=== PATIENT | female | born 1995 | race Caucasian/White ===

== ENCOUNTER → 2021-06-15 | Outpatient (CLI) | payer OTHER | LOC: M WUC 10:32 | PROVIDERS: ATTEND Physician Assistant | DX: S83.412A Sprain of medial collateral ligament of left knee, initial encounter (principal); W18.30XA Fall on same level, unspecified, initial encounter; Y92.009 Unspecified place in unspecified non-institutional (private) residence as the place of occurrence of the external cause ==

== ENCOUNTER → 2021-07-15 | Outpatient (REF) | payer OTHER | LOC: M WUC 11:18 | PROVIDERS: ATTEND Physician Assistant | DX: J06.9 Acute upper respiratory infection, unspecified (principal) ==

== ENCOUNTER → 2023-10-19 | Outpatient (CLI) | payer OTHER | LOC: M EKG 11:23 | PROVIDERS: ATTEND Obstetrics & Gynecology | DX: O16.9 Unspecified maternal hypertension, unspecified trimester (principal) ==

== ENCOUNTER → 2023-12-20 | Outpatient (CLI) | payer OTHER ==
[2023-12-20 16:03] LABS: HEMATOCRIT 36.4 % (36.0-47.0); HEMOGLOBIN 12.3 g/dl (12.0-15.5); MEAN CORPUSCULAR HGB CONC 33.8 g/dl (32.0-36.5); MEAN CORPUSCULAR VOLUME 91.7 fl (80.0-96.0); PLATELET COUNT, AUTOMATED 187 10^3/uL (150-450); RED BLOOD COUNT 3.97 10^6/uL (4.00-5.40); WHITE BLOOD COUNT 15.2 10^3/uL (4.0-10.0)
[2023-12-20 16:47] LABS: HIV 1&2 SCREEN NEGATIVE (NEGATIVE)
[2023-12-20 16:54] LABS: HEPATITIS C VIRUS ABY INDEX 0.04 INDEX (<0.8)
== END ==
LOC: M PLALAB 11:52
PROVIDERS: ATTEND Specialist
DX: Z34.02 Encounter for supervision of normal first pregnancy, second trimester (principal)

== ENCOUNTER → 2024-01-01 | Outpatient (CLI) | payer OTHER | LOC: M RAD 11:54 | PROVIDERS: ATTEND Obstetrics & Gynecology | DX: O16.9 Unspecified maternal hypertension, unspecified trimester (principal) ==

== ENCOUNTER → 2024-01-17 | Outpatient (REF) | payer OTHER ==
[2024-01-17 20:54] LABS: GC DNA AMPLIFICATION NEGATIVE (NEGATIVE)
== END ==
LOC: M SFHCWAGY 17:17
PROVIDERS: ATTEND Specialist
DX: Z34.02 Encounter for supervision of normal first pregnancy, second trimester (principal)

== ENCOUNTER → 2024-02-06 | Outpatient (CLI) | payer OTHER ==
[~2024-02-06] MED LIST: COLA100C5 PO; ECOT81TA5 PO; GNPTAB36 PO; LABE200T5 PO; PRENTAB53 PO
== END ==
LOC: M RAD 14:18
PROVIDERS: ATTEND Obstetrics & Gynecology
DX: O24.410 Gestational diabetes mellitus in pregnancy, diet controlled (principal)

== ENCOUNTER 2024-02-14 06:16 | Inpatient (IN) | payer OTHER ==
[2024-02-14] VITALS (7 sets, daily range): BP systolic 121–138; BP diastolic 65–78; O2SAT 96–99
[~2024-02-14] VITALS: Ht 162.6 cm; Wt 137.8 kg
[2024-02-14] MEDS ORDERED: LACTATED RINGER'S 1000 ML IV STA (07:34)
[2024-02-14] MEDS ORDERED: ceFAZolin SOD 3 GM IV Place Holder IV ONE (07:35)
[2024-02-14] MEDS ORDERED: BICITRA 30ML SOLN UDC PO ONE (07:35)
[2024-02-14] MEDS ORDERED: HOME MED LIST COMPLETE! XX SCH (07:45)
[2024-02-14] MEDS: LR 1,000 ML IV SCH ×2 (08:26→12:41)
[2024-02-14] MEDS: LACTATED RINGER'S 1000 ML IV STA (08:26)
[2024-02-14 08:36] LABS: HEMATOCRIT 35.8 % (36.0-47.0); HEMOGLOBIN 12.4 g/dl (12.0-15.5); MEAN CORPUSCULAR HEMOGLOBIN 31.4 pg (27.0-33.0); MEAN CORPUSCULAR HGB CONC 34.6 g/dl (32.0-36.5); MEAN CORPUSCULAR VOLUME 90.6 fl (80.0-96.0); PLATELET COUNT, AUTOMATED 163 10^3/uL (150-450); RED BLOOD COUNT 3.95 10^6/uL (4.00-5.40); WHITE BLOOD COUNT 14.2 10^3/uL (4.0-10.0)
[2024-02-14] MEDS ORDERED: CETIRIZINE (ZyrTEC) 10 MG TAB PO SCH (09:00)
[2024-02-14] MEDS: PRENATAL VITAMINS CHEWABLE TABLET PO SCH (09:00)
[2024-02-14] MEDS: BICITRA 30ML SOLN UDC PO ONE (09:25)
[2024-02-14] MEDS: ceFAZolin SOD 2 GM in IV 1 EA IV ONE (09:26)
[2024-02-14] MEDS: ceFAZolin SOD 1 GM in D5W MINI-BAG PLUS 50 ML IV ONE (09:26)
[2024-02-14 09:41] LABS: HEPATITIS C VIRUS ABY INDEX < 0.02 INDEX (<0.8)
[2024-02-14] MEDS ORDERED: MORPHINE PRES-FREE INJ 10 MG/10 ML VIAL As Ordered ONE (10:21)
[2024-02-14] MEDS ORDERED: ACETAMINOPHEN 1000MG 100ML IV BAG As Ordered ONE (10:22)
[2024-02-14] MEDS ORDERED: ONDANSETRON 4MG 2ML VIAL As Ordered ONE (10:22)
[2024-02-14] MEDS ORDERED: OXYTOCIN 30UNITS IN 0.9% NaCl 500ML IV BAG As Ordered ONE (10:22)
[2024-02-14] MEDS ORDERED: KETOROLAC 60MG 2ML VIAL As Ordered ONE (10:22)
[2024-02-14] MEDS ORDERED: ePHEDrine SULFATE 25 MG/5 ML(5MG/ML) SYRINGE As Ordered ONE (10:42)
[2024-02-14] MEDS ORDERED: PHENYLephrine 500MCG 5ML (100MCG/ML) SYRINGE As Ordered ONE (11:17)
[2024-02-14] MEDS ORDERED: diphenhydrAMINE 50MG/ML VIAL As Ordered ONE (12:03)
[2024-02-14] MEDS ORDERED: DOCUSATE SODIUM 100MG CAPSULE PO PRN (12:10)
[2024-02-14] MEDS ORDERED: SIMETHICONE 80MG CHEW TAB PO PRN (12:10)
[2024-02-14] MEDS ORDERED: RHO(D) IMMUNE GLOBULIN/MALTOSE 500MCG(2500IU)/2.2ML VIAL (WINRHO) IM SCH (12:10)
[2024-02-14] MEDS ORDERED: oxyCODONE 5MG TAB PO PRN ×3 (12:10→12:15)
[2024-02-14] MEDS ORDERED: NALOXONE INJ 0.4MG/1ML VIAL IV PRN ×2 (12:15)
[2024-02-14] MEDS: SLF 3 ML SYR IV SCH (12:15)
[2024-02-14] MEDS ORDERED: METOCLOPRAMIDE INJ 10MG/2ML VIAL IV PRN (12:15)
[2024-02-14] MEDS ORDERED: ONDANSETRON 4MG 2ML VIAL IV PRN (12:15)
[2024-02-14] MEDS ORDERED: **NOTE PATIENT COMMENT** MISC XX SCH (12:15)
[2024-02-14] MEDS ORDERED: fentaNYL 100 MCG/2 ML INJECTION IV PRN (12:15)
[2024-02-14] MEDS ORDERED: IBUP-1022 PO (12:38)
[2024-02-14] MEDS ORDERED: ACET-683 PO (12:38)
[2024-02-14] MEDS ORDERED: COLA100C5 PO (12:38)
[2024-02-14] MEDS ORDERED: OXYC-517 PO (12:38)
[2024-02-14] MEDS: OXYTOCIN DRIP 30 UNITS in IV 1 EA IV SCH (12:40)
[2024-02-14] MEDS: METOCLOPRAMIDE INJ 10MG/2ML VIAL IV PRN (15:16)
[2024-02-14] MEDS: KETOROLAC 30 MG/ML 1ML VIAL IV SCH (17:46)
[2024-02-14] MEDS: diphenhydrAMINE 50MG/ML VIAL IV PRN (17:46)
[2024-02-14] MEDS: ACETAMINOPHEN 500 MG TAB PO SCH (17:47)
[2024-02-14] MEDS: ONDANSETRON 4MG 2ML VIAL IV PRN (20:21)
[2024-02-14] MEDS: CETIRIZINE (ZyrTEC) 10 MG TAB PO SCH (20:22)
[2024-02-14] MEDS: LABETALOL 200 MG TAB PO SCH (20:22)
[2024-02-14] MEDS: LR 1,000 ML IV ONE (20:23)
[2024-02-15] VITALS (9 sets, daily range): BP systolic 109–132; BP diastolic 53–61; TEMP 98.7; O2SAT 95–98
[2024-02-15 06:23] LABS: HEMATOCRIT 30.1 % (36.0-47.0); MEAN CORPUSCULAR HEMOGLOBIN 31.2 pg (27.0-33.0); MEAN CORPUSCULAR HGB CONC 33.6 g/dl (32.0-36.5); MEAN CORPUSCULAR VOLUME 92.9 fl (80.0-96.0); PLATELET COUNT, AUTOMATED 145 10^3/uL (150-450); RED BLOOD COUNT 3.24 10^6/uL (4.00-5.40); WHITE BLOOD COUNT 15.4 10^3/uL (4.0-10.0)
[2024-02-15 06:36] LABS: HEMOGLOBIN 10.1 g/dl (12.0-15.5)
[2024-02-15 10:48] LABS: CREATININE FOR GFR 0.54 MG/DL (0.55-1.30); GLOMERULAR FILTRATION RATE > 60.0 (>60)
[2024-02-15] MEDS: IBUPROFEN 600MG TAB PO SCH (12:42)
[2024-02-15] MEDS: ENOXAPARIN 40MG/0.4ML SYRINGE (J1650 PER 10MG) SC SCH (13:29)
[2024-02-16 02:00] VITALS: BP 112/64; O2SAT 97
[2024-02-16 05:56] VITALS: BP 123/62; O2SAT 98
[2024-02-16] MEDS: MEASLES,MUMPS,RUBELLA VACCINE INJ (MMR-II) SC.IMMUN ONE (08:08)
[2024-02-16 10:00] VITALS: BP 139/80; O2SAT 97
== END 2024-02-16 13:35 | disposition home or self-care (01) | DRG 773 ==
LOC: M LDI 07:19 → M OBS 13:20
PROVIDERS: ADMIT Obstetrics & Gynecology; ATTEND Obstetrics & Gynecology
PROC: 10D00Z1 Extraction of Products of Conception, Low, Open Approach (ICD-10-PCS; principal; 2024-02-14 10:34)
DX: O34.593 Maternal care for other abnormalities of gravid uterus, third trimester (principal); Z3A.36 36 weeks gestation of pregnancy; Z37.0 Single live birth; O99.214 Obesity complicating childbirth; E66.01 Morbid (severe) obesity due to excess calories; O69.81X0 Labor and delivery complicated by cord around neck, without compression, not applicable or unspecified; Z79.899 Other long term (current) drug therapy; Z88.0 Allergy status to penicillin